=== PATIENT | male | born 1995 | race Caucasian/White ===

== ENCOUNTER 2019-05-03 18:35 | Emergency (ER) | payer OTHER ==
[~2019-05-03] VITALS: Ht 170.2 cm; Wt 72.2 kg
[~2019-05-03 18:35] MED LIST: FAMO-96 PO
[2019-05-03 19:04] VITALS: BP 140/73; PULSE 86; RESP 20; Ht 170.2 cm; Wt 72.2 kg
--- NOTE | 2019-05-03 20:38 | ERD ---
ER Documentation Chief Complaint Chief Complaint TAKING ABX. WANTS TO KNOW IF HE STILL NEEDS TO TAKE THEM. HPI Patient is a 23-year-old male, no past medical history, presents to the ER for multiple complaints. Patient states for the last 3 weeks he has been having abdominal pain, body aches and chills and feelin tired. Pain is localized to the epigastric region. Patient denies any associated nausea, vomiting, diarrhea, fevers, testicular discharge, dysuria, hematuria. Patient has no chest pain or shortness of breath. Patient states when he was in [place] 1 week ago, he saw a doctor out there. Patient was given B12 injection in [place]. Patient was given 3 medications- "Biomesina," "Amoxicilina/Clavulanico," and "Ratinidina." He does admit to eating spicy and fried foods. Patient does admit to alcohol use. Patient also states he has had a dry cough for the last few weeks. Patient was given promethazine cough syrup. Patient requesting chest xray. Patient admits to marijuana use and occasional alcohol use. Patient denies IV drug use. ROS All systems reviewed and are negative except as per history of present illness. Medications Home Meds Active Scripts Famotidine* (Pepcid*) 20 Mg Tablet, 20 MG PO DAILY for 30 Days, TAB Prov:EMRE EVANGELISTA PA-C 05/03/19 Allergies Allergies: Coded Allergies: No Known Allergy (Unverified , 05/03/19) PMhx/Soc Medical and Surgical Hx: pt denies Medical Hx, pt denies Surgical Hx History of Surgery: No Anesthesia Reaction: No Hx Neurological Disorder: No Hx Respiratory Disorders: No Hx Cardiac Disorders: No Hx Psychiatric Problems: No Hx Miscellaneous Medical Probl: No Hx Alcohol Use: No Hx Substance Use: Yes (CANNABIS.) Hx Tobacco Use: No Smoking Status: Current some day smoker FmHx Family History: No diabetes Physical Exam Vitals Vital Signs Date Temp Pulse Resp B/P (MAP) Pulse Ox O2 O2 Flow FiO2 Time Delivery Rate 05/03/19 99.0 86 20 140/73 99 19:04 (95) Physical Exam GENERAL: Well-developed, well-nourished male. Appears in no acute distress. Speaking in full sentences. HEAD: Normocephalic, atraumatic. EYES: Pupils are equally reactive bilaterally. EOMs grossly intact. No conjunctival erythema. ENT: Moist mucous membranes. No uvula deviation. No kissing tonsils. NECK: Supple. No meningismus. Normal range of motion of the neck. LUNG: Clear to auscultation bilaterally. No rhonchi, wheezing, rales or coarse breath sounds. HEART: Regular rate and rhythm. No murmurs, rubs or gallops. ABDOMEN: No scars, ecchymosis or rashes noted. Soft, and nondistended. Positive bowel sounds in all four quadrants. No rebound tenderness, no guarding. (-) McBurney's point tenderness. No CVA tenderness. EXTREMITIES: Equal pulses bilaterally. No peripheral clubbing, cyanosis or edema. No unilateral leg swelling. NEUROLOGIC: Alert and oriented. Moving all four extremities without any difficulty. Normal speech. Steady gait. SKIN: Normal color. Warm and dry. No rashes or lesions. Result Diagram: 05/03/19194005/03/191940 Results 24 hrs Laboratory Tests Test 05/03/19 19:41 White Blood Count 5.2 10^3/ul Red Blood Count 5.08 10^6/ul Hemoglobin 15.2 g/dl Hematocrit 45.1 % Mean Corpuscular Volume 88.8 fl Mean Corpuscular Hemoglobin 29.9 pg Mean Corpuscular Hemoglobin Concent 33.7 g/dl Red Cell Distribution Width 12.0 % Platelet Count 223 10^3/UL Mean Platelet Volume 9.6 fl Immature Granulocytes % 0.200 % Neutrophils % 56.0 % Lymphocytes % 31.0 % Monocytes % 8.1 % Eosinophils % 4.3 % Basophils % 0.4 % Nucleated Red Blood Cells % 0.0 /100WBC Immature Granulocytes # 0.010 10^3/ul Neutrophils # 2.9 10^3/ul Lymphocytes # 1.6 10^3/ul Monocytes # 0.4 10^3/ul Eosinophils # 0.2 10^3/ul Basophils # 0.0 10^3/ul Nucleated Red Blood Cells # 0.0 10^3/ul Sodium Level 141 mmol/L Potassium Level 4.5 mmol/L Chloride Level 105 mmol/L Carbon Dioxide Level 27 mmol/L Anion Gap 9 Blood Urea Nitrogen 13 mg/dl Creatinine 1.01 mg/dl Est Glomerular Filtrat Rate mL/min > 60 mL/min Glucose Level 82 mg/dl Calcium Level 9.4 mg/dl Total Bilirubin 0.7 mg/dl Direct Bilirubin 0.00 mg/dl Indirect Bilirubin 0.7 mg/dl Aspartate Amino Transf (AST/SGOT) 24 IU/L Alanine Aminotransferase (ALT/SGPT) 20 IU/L Alkaline Phosphatase 57 IU/L Total Protein 8.0 g/dl Albumin 4.8 g/dl Globulin 3.20 g/dl Albumin/Globulin Ratio 1.50 Lipase 44 U/L Procedures/MDM ED COURSE: The patient was stable throughout ED course. I kept the patient and/or family informed of laboratory and diagnostic imaging results throughout the ED course. DIAGNOSTIC IMAGING: Read by radiologist. Patient: BASHIR GRIFFIN : 1995 Age: 23 Sex: M MR #: [id number] DOS: 05/03/191929 Ordering MD: EMRE EVANGELISTA PA-C Location: [facility] Room/Bed: PROCEDURE: Chest. CLINICAL INDICATION: Cough. TECHNIQUE: Single frontal view of the chest was obtained. COMPARISON: None. FINDINGS: The cardiac silhouette is within normal limits. The aortic arch is unremarkable. There is no focal consolidation, vascular congestion or pleural effusion. There is no pneumothorax. IMPRESSION: No evidence for active cardiopulmonary disease. .Daniel Morgan MD, MD Date Time Electronically viewed and signed by .Daniel Morgan MD, MD on 05/03/2019 19:54 .T/ CC: EMRE EVANGELISTA PA-C [phone] MEDICAL DECISION MAKING: This is a 23-year-old male, no past medical history, presents the ER for concerns of multiple complaints. Patient reports epigastric pain for last 3 weeks. Patient also reports having a dry cough. Patient denied fevers. Patient states he was seen by provider in [place] and given 3 antibiotics and is not sure if he should be taking these medications. Vital signs were reviewed. Patient was afebrile. Patient was not hypoxic. Blood work was obtained. CBC showed no evidence of systemic infection or severe anemia. CMP showed no evidence of electrolyte abnormalities, severe acidosis, alkalosis, renal failure, or liver disease. Lipase showed no evidence of acute pancreatitis. Chest x-ray was obtained and was unremarkable. See formal report above. Patient was advised he will need to follow-up with a GI specialist for endoscopy on an outpatient basis. Unable to rule out PUD at this time. Dietary changes were advised. Prior to discharge, patient requested promethazine with codeine. Patient was advised on need to follow-up with his primary care physician for any additional medications. Patient also advised to stop all other medications given to him. Patient will be given prescription of Pepcid to be taken for concerns of GERD. Patient was low suspicion for cardiomegaly, aortic dissect ion, pleural effusion, acute coronary syndrome, AAA, endocarditis, mesenteric ischemia, lower lobe pneumonia, DKA, bowel perforation, cholecystitis, choledocholithiasis, ascending cholangitis, hepatic abscess, pancreatitis, splenic rupture, diverticulitis, UTI, nephrolithiasis, appendicitis, constip ation, testicular torsion, epididymitis, urethritis, or prostatitis. Patient was nontoxic, [id number] prior to discharge. PRESCRIPTIONS: Pepcid DISCHARGE: At this time, patient is stable for discharge and outpatient management. I have instructed the patient to follow-up with his/her primary care physician in 1-2 days. I have instructed the patient to promptly return to the ER at any time for any new or worsening symptoms including increased pain, nausea, vomiting, diarrhea, fever, weakness or LOC. The patient and/or family expressed understanding of and agreement with this plan. All questions were answered. Home care instructions were provided. Disclaimer: Inadvertent spelling and grammatical errors are likely due to EHR/dictation software use and do not reflect on the overall quality of patient care. Also, please note that the electronic time recorded on this note does not necessarily reflect the actual time of the patient encounter. Departure Diagnosis: Primary Impression: Epigastric pain Additional Impression: Cough Condition: Fair Patient Instructions: Epigastric Pain (Uncertain Cause) Referrals: COMMUNITY CLINICS YOU HAVE RECEIVED A MEDICAL SCREENING EXAM AND THE RESULTS INDICATE THAT YOU DO NOT HAVE A CONDITION THAT REQUIRES URGENT TREATMENT IN THE EMERGENCY DEPARTMENT. FURTHER EVALUATION AND TREATMENT OF YOUR CONDITION CAN WAIT UNTIL YOU ARE SEEN IN YOUR DOCTORS OFFICE WITHIN THE NEXT 1-2 DAYS. IT IS YOUR RESPONSIBILITY TO MAKE AN APPOINTMENT FOR FOLOW-UP CARE. IF YOU HAVE A PRIMARY DOCTOR --you should call your primary doctor and schedule an appointment IF YOU DO NOT HAVE A PRIMARY DOCTOR YOU CAN CALL OUR PHYSICIAN REFERRAL HOTLINE AT IF YOU CAN NOT AFFORD TO SEE A PHYSICIAN YOU CAN CHOSE FROM THE FOLLOWING [facility] [address] [facility] [address] [facility] [address] [facility] [address] [facility] [address] [facility]. [facility] [address] [facility]. [facility] YOU HAVE RECEIVED A MEDICAL SCREENING EXAM AND THE RESULTS INDICATE THAT YOU DO NOT HAVE A CONDITION THAT REQUIRES URGENT TREATMENT IN THE EMERGENCY DEPARTMENT. FURTHER EVALUATION AND TREATMENT OF YOUR CONDITION CAN WAIT UNTIL YOU ARE SEEN IN YOUR DOCTORS OFFICE WITHIN THE NEXT 1-2 DAYS. IT IS YOUR RESPONSIBILITY TO MAKE AN APPOINTMENT FOR FOLOW-UP CARE. IF YOU HAVE A PRIMARY DOCTOR --you should call your primary doctor and schedule and appointment IF YOU DO NOT HAVE A PRIMARY DOCTOR YOU CAN CALL OUR PHYSICIAN REFERRAL HOTLINE AT . IF YOU CAN NOT AFFORD TO SEE A PHYSICIAN YOU CAN CHOSE FROM THE FOLLOWING [facility] INSTITUTIONS: [facility] [address] [place] [address] [facility] [address] [place] [address] [facility] [address] [place] [address] Additional Instructions: Stop taking all other medications. Start taking Pepcid. Follow-up with a GI specialist on an outpatient basis. Call your primary care doctor TOMORROW for an appointment during the next 1-2 days.See the doctor sooner or return here if your condition worsens before your appointment time. EMRE EVANGELISTA PA-C May 03, 2019 20:35
== END 2019-05-03 20:35 | disposition home or self-care (01) ==
LOC: FTE 18:35
DX: R10.13 Epigastric pain (principal); R05 Cough; F17.210 Nicotine dependence, cigarettes, uncomplicated
CPT/HCPCS: 36415; 71045; 80053; 83690; 85025; Z7502